=== PATIENT | male | born 1970 | race African-American/Black ===

== ENCOUNTER 2016-11-21 04:57 | Observation (INO) | payer OTHER ==
--- NOTE | ~2016-11-21 | HP ---
History And Physical [address] [place]. [address] NAME: TRAN HAM : 71 STATUS : ADM Lilliam PAT#: [id number] AGE: 46 ADM/REG DATE : 11/21/16 MR#: [id number] REPORT SERV DATE: 11/21/16 DICTATED BY: GRIFFIN NARANJO DATE: 11/21/16 REPORT STATUS : Draft TRANSCRIBED BY: MODL DATE: 11/21/16 DATE OF ADMISSION: 11/21/2016 PRIMARY CARE PROVIDER: No primary care provider, although patient has insurance. CHIEF COMPLAINT: Chest pain. HISTORY OF PRESENT ILLNESS: This is a pleasant 46-year-old male with no personal cardiac history. He does have cardiac risk factors of hypertension, hyperlipidemia, and family history of CAD in his father, he also has obesity. He presented to the emergency department this morning with left-sided chest pain/pressure that he rated as 4-5/10 on the numeric pain scale. He reports it radiated to his left upper abdomen and was associated with nausea, shortness of breath, and diaphoresis. The symptoms were worse with movement. All symptoms were relieved when EMS medications were given. He reports that EMS told him he might have had a seizure on ride to hospital, but he is unaware of any seizure-like activity. He denies any personal recent illness, although son is ill with the flu at this time. He did experience chills in the ambulance as well, but he denies any fever. He also reports his blood pressure and heart rate dropped after medications in ambulance. Currently, he has no new complaints at this time including no orthopnea, no edema, and no chest pain. PAST MEDICAL HISTORY: 1. Hypertension. 2. Hyperlipidemia. 3. Anxiety. SOCIAL HISTORY: with two children. Former cigar usage, quitting 15 years ago after occasional cigars for one to two years. He denies any alcohol or illicit drug use. FAMILY HISTORY: Father with myocardial infarction and CABG at an unknown age. Mother with hypertension and diabetes. REVIEW OF SYSTEMS: The patient's chart was reviewed and per ER notation, EMS stated the patient had two seconds of arm contraction after nitroglycerin, but that they felt that a seizure was very unlikely. They noted that blood pressure was only transiently low after nitroglycerin and had resolved on its own and that there was no concern regarding blood pressure as again blood pressure was already 106/66 when patient arrived in the ER. Patient denies ever having a cardiac evaluation. He denies any flu-like symptoms or illness himself. As above per HPI, all other systems reviewed and negative. ALLERGIES: NO KNOWN ALLERGIES. MEDICATIONS: Home medication list reviewed and is as follows; 1. Atorvastatin 20 mg p.o. at bedtime. 2. Escitalopram 20 mg p.o. daily. History And Physical [address] [address] NAME: TRAN HAM : 71 STATUS : ADM Lilliam PAT#: [id number] AGE: 46 ADM/REG DATE : 11/21/16 MR#: [id number] REPORT SERV DATE: 11/21/16 DICTATED BY: GRIFFIN NARANJO DATE: 11/21/16 REPORT STATUS : Draft TRANSCRIBED BY: STEVIE DATE: 11/21/16 3. Lisinopril/HCTZ 20/12.5 mg one tablet p.o. daily. PHYSICAL EXAMINATION: VITAL SIGNS: Oxygen saturation 97% on room air. Weight 113.65 kg, body mass index 33. Temperature 97.8, pulse 59, respiratory rate 16, blood pressure 106/66 with most recent blood pressure 123/72. GENERAL: Well developed, well nourished. In no apparent distress. HEENT: Head normocephalic. No xanthelasma. Sclera clear, anicteric. Moist mucous membranes without pallor. No lymphadenopathy. No deficits noted. NECK: Trachea midline. Supple. No thyromegaly, JVD, or bruits. RESPIRATORY: Unlabored respirations. Breath sounds clear bilaterally to posterior auscultation. No wheezes, rhonchi or crackles. CARDIOVASCULAR: Regular rate and rhythm. No murmur, rub, or gallop appreciated. No chest wall tenderness to palpation. ABDOMEN: Soft, nontender, and nondistended. Active bowel sounds auscultated x4 quadrants. No organomegaly and no masses. No aortic bruit. EXTREMITIES: DP/PT and radial pulses 2+ bilaterally. No clubbing, cyanosis, or edema. SKIN: Warm, dry, intact. No rash. Normal turgor. MUSCULOSKELETAL: Moves all extremities in bed without difficulty. NEURO/PSYCH: Alert and oriented x3 with no acute distress. Affect appropriate to current situation. LABORATORY DATA: BMP: Sodium 139, potassium was low at 3.4, and repletion has been ordered. Creatinine was 1.3 and note that this was before 1 L fluid bolus provided in the emergency department. Glucose 128. CBC: White blood cell count 3.5, hemoglobin 14.7, hematocrit 44.2, platelets 146. Troponin 0.05, 0.04, and third troponin was 0.04 as well. STUDIES: Chest x-ray, borderline heart size. No acute processes. Lungs clear. EKG; sinus bradycardia, first-degree AV block, rate 54, there is a Q-wave noted in leads V2 to V3, with nonspecific ST changes. The second EKG is similar. Telemetry; sinus bradycardia with a first-degree AV block in the 50s. ASSESSMENT AND PLAN: 1. Precordial chest pain. Troponins x3; 0.05, 0.04, 0.04. They are flat and there is no evidence of acute coronary syndrome. Chest pain is resolved. Cardiac risk factors include hypertension, hyperlipidemia, family history of coronary artery disease, and occasional cigar usage in the past along with obesity. Given these cardiac risk factors. The patient will undergo a nuclear stress test this afternoon. Nurse will discharge him to home if there is low risk with no ischemia. If there are any abnormalities concerning for ischemia, then we will consider a cath arteriogram. The patient will be discharged to home if stress test is low risk and he will need to reestablish with a primary care provider. He formally saw Dr. Anne, and he will need to reestablish with a PCP of his choice. We ask that he lets us know the name of the PCP, therefore we can send records on discharge. The patient voiced understanding. 2. Hypertension. This is well controlled on lisinopril. 3. Hyperlipidemia, on statin. 4. Mildly abnormal creatinine, creatinine 1.3. This is before he received a fluid bolus History And Physical [address] [address] NAME: TRAN HAM : 71 STATUS : ADM Lilliam PAT#: [id number] AGE: 46 ADM/REG DATE : 11/21/16 MR#: [id number] REPORT SERV DATE: 11/21/16 DICTATED BY: GRIFFIN NARANJO DATE: 11/21/16 REPORT STATUS : Draft TRANSCRIBED BY: STEVIE DATE: 11/21/16 in the ER. 5. Hypokalemia. This will be repleted per electrolyte replacement protocol. The patient will be seen down in the stress testing area by rounding [place]angi tribunal member for CP[employer]. SARAH/STEVIE Griffin Naranjo NP / [id number] CC: Sue Crenshaw, MSN, TAPER AND FLOATER-BC
--- NOTE | ~2016-11-21 | HP ---
History And Physical [id number] [facility] [place]. [address] NAME: TRAN HAM : 71 STATUS : ADM Lilliam PAT#: [id number] AGE: 46 ADM/REG DATE : 11/21/16 MR#: [id number] REPORT SERV DATE: 11/21/16 DICTATED BY: GRIFFIN NARANJO DATE: 11/21/16 REPORT STATUS : Draft TRANSCRIBED BY: MODL DATE: 11/21/16 DATE OF ADMISSION: 11/21/2016 ADDENDUM: Please note that I discussed with the patient his abnormal urinalysis along with creatinine of 1.3. He did have on his urinalysis microcytic hematuria with large amount of blood, 16 red blood cell counts, otherwise it was negative. Upon further questioning, the patient reports he has previously had microcytic hematuria and mild renal insufficiency and that his primary care provider had instructed him to drink more fluids and it did resolve on its own. He does report that he is on HCTZ and lisinopril which he previously was on when he had this problem previously. Therefore, I will hold lisinopril and HCTZ today. He did get a normal saline bolus in the emergency room. Upon discharge, I have instructed him to discontinue the hydrochlorothiazide and just continue on the plain lisinopril. He is to follow up with his primary care provider who is identified as Dr. Anne in one week. Dr. Anne to recheck a BMP, to recheck the potassium and creatinine along with urinalysis is recommended. The patient is to check his blood pressure daily, record and bring in to primary care, as we will be decreasing blood pressure medications. The patient and family voiced understanding and agreement with the plan. SARAH/STEVIE Griffin Naranjo NP / [id number] CC: Sue Crenshaw, MSN, MEDICAL STAFF PHYSICIAN-BC
[2016-11-21 04:33] LABS: BASOPHILS 1.4 %; BASOPHILS ABSOLUTE 0.05 10/3/uL (0.0-0.16); EOSINOPHILS 8.4 %; EOSINOPHILS ABSOLUTE 0.29 10/3/uL (0.0-0.53); HEMATOCRIT 44.2 % (40.0-51.0); HEMOGLOBIN 14.7 g/dL (13.6-17.8); LYMPHOCYTES 41.6 %; LYMPHOCYTES ABSOLUTE 1.44 10/3/uL (0.67-4.30); MEAN CORPUS HGB CONC 33.3 g/dL (32.0-36.0); MEAN CORPUSCULAR HEMOGLOB 26.7 pg (26.0-34.0); MEAN CORPUSCULAR VOLUME 80.2 fL (80-100); MEAN PLATELET VOLUME 10.1 fL (9.2-13.0); MONOCYTES 8.1 %; MONOCYTES ABSOLUTE 0.28 10/3/uL (0.21-1.20); NEUTROPHILS 40.5 %; PLATELET COUNT 146 10/3/uL (150-400); RBC DISTRIBUTION WIDTH 15.8 % (12.0-16.0); RED CELL COUNT 5.51 10/6/uL (4.7-6.1); WHITE BLOOD CELLS 3.5 10/3/uL (4.5-10.5)
[2016-11-21 04:35] LABS: MANUAL DIFF NO %
[2016-11-21 04:40] LABS: PROTIME (NOT ORD) 12.9 SEC (12.0-14.5)
[2016-11-21 04:47] LABS: ASCORBIC ACID (UR NOT ORDER) NEG (NEG); BILIRUBIN, URINE NEGATIVE (NEG); ER URINALYSIS TAT 0 Hrs 00 Mins; KETONE, URINE NEGATIVE (NEG); LEUKOCYTE ESTERASE(NOT OR NEG (NEG); NITRITE (URINE) NEG (NEG); WBC (NOT ORDERED) (RFLEX) 4 (0-5)
[2016-11-21 04:51] LABS: ALBUMIN 3.7 G/DL (3.5-5.0); ALKALINE PHOSPHATASE 74 U/L (45-117); BUN (BLOOD UREA NITROGEN) 16 MG/DL (6-23); CALCIUM, SERUM 8.5 MG/DL (8.5-10.4); CHLORIDE, SERUM 102 MMOL/L (96-112); CO2 (CARBON DIOXIDE) 28 MMOL/L (24-34); GFR AFRICAN AMERICAN 76 ML/MIN (>=60); GFR NON AFRICAN AMERICAN 66 ML/MIN (>=60); GLOBULIN 3.7 G/DL (2.5-4.1); GLUCOSE, SERUM 128 MG/DL (60-99); POTASSIUM, SERUM 3.4 MMOL/L (3.5-5.3); SGOT(AST) 22 U/L (5-40); SGPT(ALT) 37 U/L (5-65); SODIUM, SERUM 139 MMOL/L (135-148); TOTAL BILIRUBIN 0.9 MG/DL (0-1.2); TOTAL PROTEIN 7.4 G/DL (6.0-8.5); TROPONIN I 0.05 NG/ML (<0.05)
[2016-11-21 05:30] LABS: AMPHETAMINES (NOT ORD) NEG (NEG); BARBITURATES (NOT ORDERED NEG (NEG); BENZODIAZEPINES (NOT ORD) NEG (NEG); CANNABINOIDS (THC) NEG (NEG); COCAINE (NOT ORDERED) NEG (NEG); OPIATES NEG (NEG); PHENCYCLIDINE(PCP) NEG (NEG); TRICYCLICS NEG (NEG)
[2016-11-21] MEDS ORDERED: CELEXA20 PO (05:36)
[2016-11-21] MEDS ORDERED: LIPITOR20 PO (05:36)
[2016-11-21] MEDS ORDERED: PRINZIDE1 TA1 PO (05:37)
[2016-11-21] MEDS ORDERED: PRIN20 PO (15:55)
== END 2016-11-21 17:09 | disposition home or self-care (01) ==
LOC: ER 04:57 → CDU1 06:21
PROVIDERS: Emergency Medicine
DX: R07.2 Precordial pain (principal); E87.6 Hypokalemia; E78.5 Hyperlipidemia, unspecified; I10 Essential (primary) hypertension; F41.9 Anxiety disorder, unspecified; Z87.891 Personal history of nicotine dependence; Z82.49 Family history of ischemic heart disease and other diseases of the circulatory system
CPT/HCPCS: 71010; 78452; 80053; 80305; 81001; 84484; 85025; 85610; 93005; 93017; 99285; A9270-GY; A9502; G0378